=== PATIENT | female | born 1955 | race Two or more races ===

== ENCOUNTER 2017-02-24 09:57 | Emergency (ER) | payer OTHER ==
[~2017-02-24] VITALS: Ht 162.6 cm; Wt 61.2 kg
--- NOTE | 2017-02-24 10:08 | NUR ---
AAOX3, BB SON: ABDOMINAL PAIN/DISTENSION, BACK PAIN, DIFFICULTY WALKING. RR IS EVEN AND UNLABORED WITH NAD NOTED. SKIN IS WARM AND NON DIAPHORETIC. ASSISTED TO HOSPITAL GOWN, PLACED ON MONITOR. WILL CONTINUOUSLY MONITOR THE PATIENT. DR MOBLEY AT FOR EVAL.
[2017-02-24 10:55] LABS: BASOPHILS % (AUTO) 0.9 % (0.0-2.0); EOSINOPHILS # (AUTO) 0.1 /CMM (0.0-0.7); EOSINOPHILS % (AUTO) 2.5 % (0.0-6.0); HEMATOCRIT 33 % (33-45); LYMPHOCYTES # (AUTO) 1.1 /CMM (0.8-4.8); LYMPHOCYTES % (AUTO) 21.9 % (20.0-44.0); MEAN CORPUSCULAR HEMOGLOBIN 33 PG (26.0-33.0); MEAN CORPUSCULAR HGB CONC 34 g/dl (31.0-36.0); MEAN CORPUSCULAR VOLUME 97 fL (82-100); MONOCYTES # (AUTO) 0.6 /CMM (0.1-1.30); MONOCYTES % (AUTO) 12.3 % (2.0-12.0); NEUTROPHILS # (AUTO) 3.4 /CMM (1.8-8.9); NEUTROPHILS % (AUTO) 62.4 % (43.0-81.0); PLATELET COUNT (AUTO) 156 /CMM (150-450); RDW COEFFICIENT OF VARIATION 15.1 (11.5-15.0); RED BLOOD CELL COUNT(AUTO) 3.38 MIL/uL (4.0-5.2); WHITE BLOOD COUNT (AUTO) 5.2 K/uL (4.3-11.0)
[2017-02-24] MEDS ORDERED: TRAMADOL HCL 50 MG TABLET PO ONE (11:00)
[2017-02-24] MEDS ORDERED: TRAMADOL HCL 50 MG TABLET ONE (11:05)
[2017-02-24 11:09] LABS: INR 1.5 (0.87-1.13); PROTHROMBIN TIME 15.9 SECS (9.5-12.7)
[2017-02-24 11:14] LABS: ALBUMIN 2.1 g/dL (3.4-5.0); BILIRUBIN,DIRECT 1.4 mg/dL (0.0-0.2); CALCIUM, SERUM 8.4 mg/dL (8.5-10.1); CREATININE 1.2 mg/dL (0.6-1.3); POTASSIUM 4.3 mmol/L (3.5-5.1); TOTAL PROTEIN, SERUM 6.9 g/dL (6.4-8.2)
--- NOTE | 2017-02-24 11:23 | NUR ---
ADULT PAROLE OFFICER AT FOR PARACENTESIS
--- NOTE | 2017-02-24 12:31 | NUR ---
IV removed. Catheter intact and site benign. Pressure and 4x4 applied to site. No bleeding noted.
--- NOTE | 2017-02-24 12:32 | NUR ---
ASSUMED D/C CARE ONLY ON BEHALF OF PRIMARY NURSE STEFANIE. Patient discharged to home in stable condition. Written and verbal after care instructions given. Patient verbalizes understanding of instruction. Ambulatory with a steady gait accompanied by son.
[2017-02-24 12:34] VITALS: BP 115/72
== END 2017-02-24 12:35 | disposition home or self-care (01) ==
LOC: ER 10:01
DX: R18.8 Other ascites (principal); K74.60 Unspecified cirrhosis of liver; Z94.4 Liver transplant status; Z88.5 Allergy status to narcotic agent
CPT/HCPCS: 36415; 49083 ×2; 80048; 80076; 85025; 85730; 99285; A4606; Z7610; 76942-TC

== ENCOUNTER 2017-03-24 09:37 | Emergency (ER) | payer MEDICAID, OTHER ==
[~2017-03-24] VITALS: Ht 162.6 cm; Wt 62.6 kg
--- NOTE | 2017-03-24 09:40 | NUR ---
BIB SELF ABDOMINAL DISTENSION DUE TO ASCITIS, LAST PARACENTESIS 02/24/17, NAD NOTED, VSS , RESP EVEN AND UNLABORED. PT WAS PUT ON GOWN AND MONITOR, MD AT BEDSIDE FOR EVAL.
[2017-03-24] MEDS ORDERED: FURO40TA5 PO (09:56)
[2017-03-24] MEDS ORDERED: TRAM50TA2 PO (09:56)
[2017-03-24] MEDS ORDERED: SPIR25TA PO (09:56)
[2017-03-24] MEDS ORDERED: OMEP20CA10 PO (09:56)
[2017-03-24] MEDS ORDERED: ONDANSETRON HCL/PF 4 MG/2 ML VIAL ONE ×2 (09:59)
[2017-03-24] MEDS ORDERED: MORPHINE SULFATE INJ 2 MG/ML DISP.SYRIN ONE ×2 (10:00)
[2017-03-24] MEDS ORDERED: ONDANSETRON HCL/PF 4 MG/2 ML VIAL IVP ONE (10:00)
[2017-03-24] MEDS ORDERED: MORPHINE SULFATE INJ 2 MG/ML DISP.SYRIN IV ONE (10:00)
[2017-03-24 10:21] LABS: BASOPHILS # (AUTO) 0.1 /CMM (0.0-0.2); BASOPHILS % (AUTO) 1.4 % (0.0-2.0); EOSINOPHILS # (AUTO) 0.1 /CMM (0.0-0.7); EOSINOPHILS % (AUTO) 3.1 % (0.0-6.0); HEMATOCRIT 33 % (33-45); HEMOGLOBIN 11.3 g/dL (11.5-14.8); LYMPHOCYTES % (AUTO) 24.4 % (20.0-44.0); MEAN CORPUSCULAR HEMOGLOBIN 33 PG (26.0-33.0); MEAN CORPUSCULAR HGB CONC 34 g/dl (31.0-36.0); MEAN CORPUSCULAR VOLUME 97 fL (82-100); MONOCYTES # (AUTO) 0.6 /CMM (0.1-1.30); MONOCYTES % (AUTO) 12.9 % (2.0-12.0); NEUTROPHILS # (AUTO) 2.5 /CMM (1.8-8.9); NEUTROPHILS % (AUTO) 58.2 % (43.0-81.0); PLATELET COUNT (AUTO) 158 /CMM (150-450); RDW COEFFICIENT OF VARIATION 15.2 (11.5-15.0); RED BLOOD CELL COUNT(AUTO) 3.38 MIL/uL (4.0-5.2); WHITE BLOOD COUNT (AUTO) 4.3 K/uL (4.3-11.0)
[2017-03-24 10:30] LABS: CALCIUM, SERUM 8.1 mg/dL (8.5-10.1); CREATININE 1.3 mg/dL (0.6-1.3); POTASSIUM 3.2 mmol/L (3.5-5.1)
[2017-03-24 10:34] LABS: INR 1.47 (0.87-1.13); PROTHROMBIN TIME 15.6 SECS (9.5-12.7)
[2017-03-24 10:36] LABS: ALBUMIN 1.9 g/dL (3.4-5.0); BILIRUBIN,DIRECT 1.6 mg/dL (0.0-0.2); BILIRUBIN,TOTAL 2.9 mg/dL (0.2-1.0); TOTAL PROTEIN, SERUM 7.1 g/dL (6.4-8.2)
--- NOTE | 2017-03-24 11:30 | NUR ---
at bedside for US guided paracentesis. pt signed consents
--- NOTE | 2017-03-24 12:21 | NUR ---
IV removed. Catheter intact and site benign. Pressure and 4x4 applied to site. No bleeding noted.
--- NOTE | 2017-03-24 12:22 | NUR ---
Patient discharged to home in stable condition. Written and verbal after care instructions given. Patient verbalizes understanding of instruction.
[2017-03-24 12:56] VITALS: BP 124/78
== END 2017-03-24 12:56 | disposition home or self-care (01) ==
LOC: ER 09:40
DX: R18.8 Other ascites (principal); K74.60 Unspecified cirrhosis of liver; Z88.5 Allergy status to narcotic agent
CPT/HCPCS: 36415; 49083 ×2; 80048; 80076; 85025; 85730; 96374; 96375; 99285; A4606; A6402; J2270 ×2; J2405 ×2; Z7610; 76942-TC

== ENCOUNTER 2017-04-14 10:06 | Emergency (ER) | payer MEDICAID ==
[~2017-04-14] VITALS: Ht 162.6 cm; Wt 63.5 kg
[~2017-04-14 10:06] MED LIST: FURO40TA5 PO; OMEP20CA10 PO; SPIR25TA PO; TRAM50TA2 PO
--- NOTE | 2017-04-14 10:15 | NUR ---
BB SON: HERE FOR PARACENTESIS. LAST PARACENTESIS 3 WEEKS AGO. PATIENT A/OX 4. BREATHING EVEN AND UNLABORED. NO SOB. VITALS STABLE. SAFETY AND COMFORT MEASURES IN PLACE. AWAITING MD ORDERS.
[2017-04-14 10:55] LABS: BASOPHILS # (AUTO) 0.1 /CMM (0.0-0.2); BASOPHILS % (AUTO) 1.9 % (0.0-2.0); EOSINOPHILS # (AUTO) 0.1 /CMM (0.0-0.7); EOSINOPHILS % (AUTO) 3.4 % (0.0-6.0); HEMATOCRIT 31 % (33-45); HEMOGLOBIN 10.7 g/dL (11.5-14.8); LYMPHOCYTES # (AUTO) 1.1 /CMM (0.8-4.8); LYMPHOCYTES % (AUTO) 25.9 % (20.0-44.0); MEAN CORPUSCULAR HEMOGLOBIN 34 PG (26.0-33.0); MEAN CORPUSCULAR HGB CONC 35 g/dl (31.0-36.0); MEAN CORPUSCULAR VOLUME 98 fL (82-100); MONOCYTES # (AUTO) 0.7 /CMM (0.1-1.30); MONOCYTES % (AUTO) 14.9 % (2.0-12.0); NEUTROPHILS # (AUTO) 2.4 /CMM (1.8-8.9); NEUTROPHILS % (AUTO) 53.9 % (43.0-81.0); PLATELET COUNT (AUTO) 174 /CMM (150-450); RDW COEFFICIENT OF VARIATION 14.9 (11.5-15.0); RED BLOOD CELL COUNT(AUTO) 3.18 MIL/uL (4.0-5.2); WHITE BLOOD COUNT (AUTO) 4.4 K/uL (4.3-11.0)
[2017-04-14 11:10] LABS: INR 1.38 (0.87-1.13); PROTHROMBIN TIME 14.4 SECS (9.5-12.7)
[2017-04-14 11:13] LABS: ALBUMIN 1.8 g/dL (3.4-5.0); BILIRUBIN,DIRECT 1.6 mg/dL (0.0-0.2); CALCIUM, SERUM 8.5 mg/dL (8.5-10.1); CREATININE 1.3 mg/dL (0.6-1.3); POTASSIUM 4.3 mmol/L (3.5-5.1)
[2017-04-14] MEDS ORDERED: ONDANSETRON HCL/PF - ER 4 MG/2 ML VIAL IV ONE (11:30)
[2017-04-14] MEDS ORDERED: MORPHINE SULFATE INJ 2 MG/ML DISP.SYRIN IV ONE (11:30)
[2017-04-14] MEDS ORDERED: ONDANSETRON HCL/PF 4 MG/2 ML VIAL ONE (11:47)
[2017-04-14] MEDS ORDERED: MORPHINE SULFATE INJ 4 MG/ML DISP.SYRIN ONE (11:48)
--- NOTE | 2017-04-14 11:57 | NUR ---
NEW IV STARTED ON LAC, 22 G. PATIENT MEDICATED PER MD ORDERS.
--- NOTE | 2017-04-14 12:02 | NUR ---
US TECH AT BEDSIDE.
[2017-04-14] MEDS ORDERED: ALBUMIN 25% 100 ML IV ONE (13:00)
[2017-04-14] MEDS ORDERED: ALBUMIN 25% 12.5 GM/50 ML BOTTLE IV ONE (13:00)
--- NOTE | 2017-04-14 13:15 | NUR ---
PARACENTESIS COMPLETED, APPROX 8.9 L REMOVED. PATIENT'S VITALS REMAIN STABLE.
[2017-04-14 15:13] VITALS: BP 106/61
--- NOTE | 2017-04-14 15:24 | NUR ---
Patient discharged to home in stable condition. Written and verbal after care instructions given. Patient verbalizes understanding of instruction.
== END 2017-04-14 15:23 | disposition home or self-care (01) ==
LOC: ER 10:08
DX: R18.8 Other ascites (principal); K74.60 Unspecified cirrhosis of liver; Z88.5 Allergy status to narcotic agent
CPT/HCPCS: 36415; 49083; 76942-TC; 80048-TC; 80076-TC; 85025-TC; 85730-TC; A4606; J2270; J2405; P9047; Z7610

== ENCOUNTER 2017-04-28 15:38 | Inpatient (IN) | payer MEDICAID ==
[~2017-04-28] VITALS: Ht 162.6 cm; Wt 56.3 kg
--- NOTE | 2017-04-28 15:44 | NUR ---
NAUSEA, VOMITING, DIFFUSED ABDOMINAL PAIN X 1 MONTH
[2017-04-28] MEDS ORDERED: ONDANSETRON HCL/PF 4 MG/2 ML VIAL ONE (16:22)
[2017-04-28] MEDS ORDERED: HYDROMORPHONE 1 MG/1 ML DISP.SYRIN ONE (16:23)
[2017-04-28 16:27] LABS: CALCIUM, SERUM 8.7 mg/dL (8.5-10.1); CREATININE 1.2 mg/dL (0.6-1.3); POTASSIUM 3.7 mmol/L (3.5-5.1)
[2017-04-28 16:30] LABS: INR 1.38 (0.87-1.13); PROTHROMBIN TIME 14.4 SECS (9.5-12.7)
[2017-04-28] MEDS ORDERED: HYDROMORPHONE INJ 2 MG/ML DISP.SYRIN IV ONE (16:30)
[2017-04-28] MEDS ORDERED: ONDANSETRON HCL/PF 4 MG/2 ML VIAL IVP ONE (16:30)
[2017-04-28] MEDS ORDERED: IV NS 0.9% 1,000 ML BAG IV ONE (16:30)
[2017-04-28 16:32] LABS: ALBUMIN 2.1 g/dL (3.4-5.0); BILIRUBIN,DIRECT 1.7 mg/dL (0.0-0.2); BILIRUBIN,TOTAL 3.1 mg/dL (0.2-1.0); TOTAL PROTEIN, SERUM 6.9 g/dL (6.4-8.2)
[2017-04-28 16:37] LABS: BASOPHILS # (AUTO) 0.1 /CMM (0.0-0.2); BASOPHILS % (AUTO) 0.9 % (0.0-2.0); EOSINOPHILS % (AUTO) 0.5 % (0.0-6.0); HEMATOCRIT 32 % (33-45); HEMOGLOBIN 10.9 g/dL (11.5-14.8); LYMPHOCYTES # (AUTO) 1.1 /CMM (0.8-4.8); LYMPHOCYTES % (AUTO) 15.8 % (20.0-44.0); MEAN CORPUSCULAR HEMOGLOBIN 33 PG (26.0-33.0); MEAN CORPUSCULAR HGB CONC 34 g/dl (31.0-36.0); MEAN CORPUSCULAR VOLUME 99 fL (82-100); MONOCYTES # (AUTO) 0.8 /CMM (0.1-1.30); MONOCYTES % (AUTO) 10.9 % (2.0-12.0); NEUTROPHILS % (AUTO) 71.9 % (43.0-81.0); PLATELET COUNT (AUTO) 222 /CMM (150-450); RDW COEFFICIENT OF VARIATION 16.4 (11.5-15.0); RED BLOOD CELL COUNT(AUTO) 3.28 MIL/uL (4.0-5.2); WHITE BLOOD COUNT (AUTO) 6.9 K/uL (4.3-11.0)
--- NOTE | 2017-04-28 16:47 | NUR ---
FLAT LOCKER AT BEDSIDE
--- NOTE | 2017-04-28 17:55 | NUR ---
3L OUTPUT FROM PARACENTESIS. DR MOBLEY MADE AWARE
--- NOTE | 2017-04-28 18:22 | NUR ---
PT BACK FROM CT
--- NOTE | 2017-04-28 19:16 | NUR ---
GAVE REPORT TO WYATT FOR RAMBO
--- NOTE | 2017-04-28 20:32 | NUR ---
PATIENT ASSIGNED TO T323-1
--- NOTE | 2017-04-28 20:39 | NUR ---
REPORT GIVEN TO JOHN NICOLE FOR RAMBO.
--- NOTE | 2017-04-28 20:48 | NUR ---
patient unable to give urine at this time, per Dr Blanton patient is strict npo.
--- NOTE | 2017-04-28 20:51 | NUR ---
Transferred ptaient to tele floor via als protocol, no incident noted.
[2017-04-28] MEDS ORDERED: ONDANSETRON HCL/PF 4 MG/2 ML VIAL IVP PRN ×2 (21:00→21:15)
[2017-04-28] MEDS ORDERED: MAGNESIUM HYDROXIDE 30 ML UDC PO PRN ×2 (21:00→21:15)
[2017-04-28] MEDS ORDERED: ACETAMINOPHEN 325 MG TABLET PO PRN ×2 (21:00→21:15)
[2017-04-28] MEDS ORDERED: TRAMADOL HCL 50 MG TABLET PO PRN ×2 (21:00→21:15)
[2017-04-28] MEDS ORDERED: MAG HYDROX/AL HYDROX/SIMETH 30 ML UDC PO PRN ×2 (21:00→21:15)
[2017-04-28] MEDS ORDERED: Z GUARD REMEDY 2 OZ OINT TP PRN ×2 (21:00→21:15)
[2017-04-28 21:15] VITALS: BP 107/71
--- NOTE | 2017-04-28 21:15 | NUR ---
television cameraman note received patient awake, alert and oriented with son at bedside. No respiratory distress or sob noted. Patient denies any pain at this time. iv site to rac intact, with no redness noted. Skin intact, with no breakdown noted. Edema noted to bilateral legs and feet. Abdomen noted to be firm and distended. Medication reconciliation complete. All belongings checked and accounted for. Oriented patient and son to room and to unit. Side rails up, call light within reach. Waiting for MD orders.
[2017-04-29 04:00] VITALS: BP 129/84
--- NOTE | 2017-04-29 06:37 | NUR ---
ms rn note patient sleeping at this time. All needs met and attended to. Will endorse to day shift for roro.
[2017-04-29 08:00] VITALS: BP 113/78
--- NOTE | 2017-04-29 08:00 | NUR ---
OPENING RN NOTES: -PATIENT is alert, responding verbally, non-labored respirations, with IV site intact, claimed slight headache, & agreed with MD 's instructions to be NPO due to the procedure yesterday & to allow stomach to rest.
[2017-04-29] MEDS ORDERED: Medication Not On Formulary EA (Omeprazole 20 MG) PO SCH (09:00)
[2017-04-29] MEDS ORDERED: FUROSEMIDE 40 MG TABLET PO SCH (09:00)
[2017-04-29] MEDS ORDERED: SPIRONOLACTONE 25 MG TABLET PO SCH (09:00)
[2017-04-29] MEDS: PANTOPRAZOLE 40 MG TABLET.DR PO SCH (09:28)
[2017-04-29] MEDS: FUROSEMIDE 40 MG TABLET PO SCH (09:28)
[2017-04-29] MEDS: SPIRONOLACTONE 25 MG TABLET PO SCH (09:28)
[2017-04-29] MEDS: IV LR 1000 ML 1,000 ML IV PRN ×2 (09:34→23:11)
--- NOTE | 2017-04-29 09:38 | NUR ---
- clarified with Dr. Hay re; NPO except meds, & OKAYED WITH MEDS USING SIPS OF WATER, & gave IV fluids while patient is NPO. IV'S started via pump.
--- NOTE | 2017-04-29 12:41 | NUR ---
- patient ambulated around hallway with physical therapist, & also to BRP without problems.
[2017-04-29 16:00] VITALS: BP 102/70
--- NOTE | 2017-04-29 16:34 | NUR ---
- Informed Jeremiah, son re: need to obtain CT SCAN results done in [facility] - & he promised to get it on Monday.
[2017-04-29 16:45] VITALS: BP 104/61
--- NOTE | 2017-04-29 17:55 | NUR ---
RN Closing Notes: - patient is alert & oriented x4, fully awake, verbally responsive, ambulated to BRP with supervision, without problems, Jeremiah,son at bedside, remained NPO EXCEPT MEDS, patient patiently waiting for MD's visit today , claimed no abdominal pain this time, & headache is less bothersome, christ light within 'reach, with infusing IV via pump.
--- NOTE | 2017-04-29 19:30 | NUR ---
ms rn note Received patient awake and alert in bed. Patient denies any pain or discomfort. IV site intact, with fluids running as ordered. Bed locked and in lowest position. Side rails up, call light within reach. Will continue to monitor.
[2017-04-29 20:00] VITALS: BP_SYST 113; BP_DIAS 62; BP_DIAS 67
--- NOTE | 2017-04-30 06:10 | NUR ---
MS RN NOTE PATIENT STABLE. SLEEPING AT THIS TIME. ALL NEEDS MET AND ATTENDED TO. WILL ENDORSE TO DAY SHIFT FOR RAMBO.
[2017-04-30] MEDS: PANTOPRAZOLE 40 MG TABLET.DR PO SCH (06:30)
[2017-04-30 06:56] LABS: BASOPHILS % (AUTO) 0.3 % (0.0-2.0); EOSINOPHILS # (AUTO) 0.1 /CMM (0.0-0.7); EOSINOPHILS % (AUTO) 1.7 % (0.0-6.0); HEMATOCRIT 32 % (33-45); HEMOGLOBIN 10.7 g/dL (11.5-14.8); LYMPHOCYTES # (AUTO) 1.8 /CMM (0.8-4.8); LYMPHOCYTES % (AUTO) 24.9 % (20.0-44.0); MEAN CORPUSCULAR HEMOGLOBIN 34 PG (26.0-33.0); MEAN CORPUSCULAR HGB CONC 34 g/dl (31.0-36.0); MEAN CORPUSCULAR VOLUME 100 fL (82-100); MONOCYTES # (AUTO) 0.7 /CMM (0.1-1.30); MONOCYTES % (AUTO) 10.1 % (2.0-12.0); NEUTROPHILS # (AUTO) 4.6 /CMM (1.8-8.9); PLATELET COUNT (AUTO) 225 /CMM (150-450); RDW COEFFICIENT OF VARIATION 16.5 (11.5-15.0); RED BLOOD CELL COUNT(AUTO) 3.17 MIL/uL (4.0-5.2); WHITE BLOOD COUNT (AUTO) 7.4 K/uL (4.3-11.0)
[2017-04-30 07:20] LABS: CREATININE 1.3 mg/dL (0.6-1.3); MAGNESIUM 1.8 mg/dL (1.8-2.4); PHOSPHORUS 4.1 mg/dL (2.5-4.9); POTASSIUM 3.9 mmol/L (3.5-5.1)
[2017-04-30 07:29] LABS: THYROID STIMULATING HORMONE 1.471 uIU/mL (0.358-3.74)
[2017-04-30] MEDS ORDERED: DEXTROSE 50%-WATER 50 ML DISP.SYRIN ONE (07:37)
--- NOTE | 2017-04-30 07:55 | NUR ---
MS RN: INITIAL NOTE RECEIVED PT A/OX4. TURKMEN SPEAKING BUT UNDERSTANDS [place]. NO DISTRESS. NO SOB. NO PAIN NOTED. NPO EXCEPT MEDS. UPON ARRIVAL PT BG 49. PER MD ALMEIDA TO GIVE DEXTROSE. ADMINISTERED ORDERED. PT NOT EXPERIENCING S/S OF HYPOGLYCEMIA. PT NOT DIABETIC. LA @100ML/HR RUNNING ON RAC. SKIN INTACT. AMBULATES WITH ASSIST. WILL CONTINUE TO MONITOR. RESTING COMFORTABLY IN BED. CALL LIGHT WITHIN REACH.
[2017-04-30] MEDS: IV D5/0.45 NACL 1,000 ML IV PRN ×2 (08:30→23:59)
[2017-04-30] MEDS: SPIRONOLACTONE 25 MG TABLET PO SCH (08:31)
[2017-04-30] MEDS: FUROSEMIDE 40 MG TABLET PO SCH (08:31)
--- NOTE | 2017-04-30 19:03 | NUR ---
MS RN: CLOSING NOTE PT A//OX4. TOOK ALL MEDICATIONS ON TIME. NO ADVERSE REACTIONS NOTED. NO PAIN NOTED. NO SOB NOTED. NO DISTRESS NOTED. STARTED ON CLEAR LIQUID DIET PER MD ALMEIDA ORDERS. WILL SEE HOW PT TOLERATES DIET AND MOVE ON TOMORROW. PT MIGHT BE D/C TOMORROW BASED ON STATUS. ON D51/2 NS @ 100ML/HR. SITE CLEAR AND PATENT. NO REDNESS OR BLEEDING NOTED. RESTING COMFORTABLY IN BED. CALL LIGHT WITHIN REACH.
--- NOTE | 2017-04-30 19:30 | NUR ---
MS RN NOTE PATIENT RECEIVED AWAKE AND ALERT IN BED. NO PAIN OR DISCOMFORT NOTED. IV SITE INTACT WITH FLUIDS RUNNING ORDERED. BED LOCKED AND IN LOWEST POSITION. SIDE RAILS UP, CALL LIGHT WITHIN REACH. WILL CONTINUE TO MONITOR.
[2017-04-30 20:00] VITALS: BP 100/68
--- NOTE | 2017-05-01 06:15 | NUR ---
MS RN NOTE PATIENT STABLE. SLEEPING AT THIS TIME. ALL NEEDS MET AND ATTENDED TO. WILL ENDORSE TO DAY SHIFT FOR RAMBO.
[2017-05-01] MEDS: PANTOPRAZOLE 40 MG TABLET.DR PO SCH (06:37)
[2017-05-01 06:46] LABS: BASOPHILS % (AUTO) 0.6 % (0.0-2.0); EOSINOPHILS # (AUTO) 0.2 /CMM (0.0-0.7); EOSINOPHILS % (AUTO) 3.3 % (0.0-6.0); HEMATOCRIT 29 % (33-45); HEMOGLOBIN 9.9 g/dL (11.5-14.8); LYMPHOCYTES # (AUTO) 1.6 /CMM (0.8-4.8); LYMPHOCYTES % (AUTO) 29.4 % (20.0-44.0); MEAN CORPUSCULAR HEMOGLOBIN 34 PG (26.0-33.0); MEAN CORPUSCULAR HGB CONC 34 g/dl (31.0-36.0); MEAN CORPUSCULAR VOLUME 99 fL (82-100); MONOCYTES % (AUTO) 17.2 % (2.0-12.0); NEUTROPHILS # (AUTO) 2.8 /CMM (1.8-8.9); NEUTROPHILS % (AUTO) 49.5 % (43.0-81.0); PLATELET COUNT (AUTO) 202 /CMM (150-450); RDW COEFFICIENT OF VARIATION 16.2 (11.5-15.0); RED BLOOD CELL COUNT(AUTO) 2.93 MIL/uL (4.0-5.2); WHITE BLOOD COUNT (AUTO) 5.6 K/uL (4.3-11.0)
[2017-05-01 07:05] LABS: CALCIUM, SERUM 8.4 mg/dL (8.5-10.1); CREATININE 1.3 mg/dL (0.6-1.3); POTASSIUM 3.2 mmol/L (3.5-5.1)
--- NOTE | 2017-05-01 07:05 | NUR ---
MS RN initial notes Received pt in bed awake on room air, alert,orientedx4, hungarian speaking, no apparent distress noted.On IV D 5 1/2 NS @ 100ml/hr. IV site intact, patent. Will continue to monitor.
[2017-05-01 08:00] VITALS: BP 117/76
[2017-05-01] MEDS: SPIRONOLACTONE 25 MG TABLET PO SCH (08:00)
[2017-05-01] MEDS: FUROSEMIDE 40 MG TABLET PO SCH (08:00)
[2017-05-01 08:51] LABS: EOSINOPHILS % (MANUAL) 3 % (0-4); LYMPHOCYTES % (MANUAL) 10 % (16-48); MONOCYTES % (MANUAL) 9 % (0-11.0); NEUTROPHILS % (MANUAL) 78 (42-76)
[2017-05-01] MEDS ORDERED: POTASSIUM CHLORIDE 20 MEQ TAB.PRT.SR PO ONE (09:00)
[2017-05-01 16:00] VITALS: BP 127/73
--- NOTE | 2017-05-01 19:24 | NUR ---
ms learning administrator notes discharge instructions given to patient and able to understand instructions. Signed belonging list and discharge paper. discontinued IV and pressured applied to prevent bleeding. Flu vaccine not give due to patient refusal will receive elsewhere. Explained the risk and benefits x 3, and still refused. Pneumonia vaccine not given due to <65 years old. Patient left the hospital in stable condition accompanied by PROFESSOR OF PHYSICAL EDUCATION no complaint of pain or discomfort noted. nor chest pain Vital signs checked and recorded. MD and charge nurse aware.
== END 2017-05-01 19:25 | disposition home or self-care (01) | DRG 264 ==
LOC: ER 15:40 → TELE 21:10 → MED 04-29 05:11
PROVIDERS: ADMIT Family Medicine; ATTEND Family Medicine
PROC: 0W9G3ZX Drainage of Peritoneal Cavity, Percutaneous Approach, Diagnostic (ICD-10-PCS; principal; 2017-04-28)
DX: K85.90 Acute pancreatitis without necrosis or infection, unspecified (principal); E43 Unspecified severe protein-calorie malnutrition; R18.8 Other ascites; K74.60 Unspecified cirrhosis of liver; E87.1 Hypo-osmolality and hyponatremia; K86.89 Other specified diseases of pancreas; D63.8 Anemia in other chronic diseases classified elsewhere; Z88.5 Allergy status to narcotic agent; Z87.891 Personal history of nicotine dependence; Z90.49 Acquired absence of other specified parts of digestive tract; Z79.899 Other long term (current) drug therapy; M46.90 Unspecified inflammatory spondylopathy, site unspecified
CPT/HCPCS: 36415; 76942-TC; 80048-TC; 80076-TC; 82140-TC; 82728-TC; 82746; 83540-TC; 83690-TC; 83735-TC; 84100-TC; 84439-TC; 84443-TC; 85025-TC; 85730-TC; 86301; 87081-TC; J1170; J2405; J3490; J7030; J7120

== ENCOUNTER 2017-05-11 10:14 | Emergency (ER) | payer MEDICAID ==
[~2017-05-11] VITALS: Ht 162.6 cm; Wt 62.6 kg
--- NOTE | 2017-05-11 10:20 | NUR ---
PRESENTS TO ER C/O ABD PAIN AND BACK PAIN . ADB DISTENTION -N/V RECENT PARACENTESIS 2 WEEKS AGO. PATIENT A/OX 4. BREATHING EVEN AND UNLABORED. NO SOB. VITALS STABLE. SAFETY AND COMFORT MEASURSE IN PLACE. AWAITING MD ORDERS.
[2017-05-11] MEDS ORDERED: ONDANSETRON HCL/PF 4 MG/2 ML VIAL ONE (10:51)
[2017-05-11] MEDS ORDERED: HYDROMORPHONE 1 MG/1 ML DISP.SYRIN ONE (10:52)
--- NOTE | 2017-05-11 10:55 | NUR ---
NEW IV STARTED ON RAC, 20 G. BLOOD DRAWN AND SENT TO LAB.
[2017-05-11] MEDS ORDERED: HYDROMORPHONE INJ 2 MG/ML DISP.SYRIN IV ONE (11:00)
[2017-05-11] MEDS ORDERED: ONDANSETRON HCL/PF 4 MG/2 ML VIAL IVP ONE (11:00)
--- NOTE | 2017-05-11 11:00 | NUR ---
PATIENT MEDICATED PER MD ORDERS.
[2017-05-11 11:01] LABS: BASOPHILS # (AUTO) 0.1 /CMM (0.0-0.2); BASOPHILS % (AUTO) 1.6 % (0.0-2.0); EOSINOPHILS # (AUTO) 0.2 /CMM (0.0-0.7); EOSINOPHILS % (AUTO) 3.6 % (0.0-6.0); HEMATOCRIT 31 % (33-45); HEMOGLOBIN 10.7 g/dL (11.5-14.8); LYMPHOCYTES # (AUTO) 1.2 /CMM (0.8-4.8); LYMPHOCYTES % (AUTO) 25.1 % (20.0-44.0); MEAN CORPUSCULAR HEMOGLOBIN 34 PG (26.0-33.0); MEAN CORPUSCULAR HGB CONC 34 g/dl (31.0-36.0); MEAN CORPUSCULAR VOLUME 100 fL (82-100); MONOCYTES # (AUTO) 0.9 /CMM (0.1-1.30); MONOCYTES % (AUTO) 19.3 % (2.0-12.0); NEUTROPHILS # (AUTO) 2.3 /CMM (1.8-8.9); NEUTROPHILS % (AUTO) 50.4 % (43.0-81.0); PLATELET COUNT (AUTO) 169 /CMM (150-450); RDW COEFFICIENT OF VARIATION 15.4 (11.5-15.0); RED BLOOD CELL COUNT(AUTO) 3.16 MIL/uL (4.0-5.2); WHITE BLOOD COUNT (AUTO) 4.7 K/uL (4.3-11.0)
[2017-05-11 11:13] LABS: CALCIUM, SERUM 8.7 mg/dL (8.5-10.1); CREATININE 1.3 mg/dL (0.6-1.3); POTASSIUM 3.6 mmol/L (3.5-5.1)
[2017-05-11 11:16] LABS: INR 1.38 (0.87-1.13); PROTHROMBIN TIME 14.4 SECS (9.5-12.7)
[2017-05-11 11:18] LABS: ALBUMIN 1.9 g/dL (3.4-5.0); BILIRUBIN,DIRECT 1.8 mg/dL (0.0-0.2); BILIRUBIN,TOTAL 3.4 mg/dL (0.2-1.0)
[2017-05-11 11:36] LABS: APPEARANCE,URINE Slightly Cloudy (CLEAR); BILIRUBIN,URINE Negative (NEGATIVE); BLOOD, URINE Moderate Ery/uL (NEGATIVE); KETONES,URINE Negative (NEGATIVE); LEUKOCYTE ESTERASE ,URINE Small (NEGATIVE); NITRITE, URINE Negative (NEGATIVE); PROTEIN,URINE Negative (NEGATIVE); UGLUCOSE Negative (NEGATIVE)
[2017-05-11 11:38] LABS: COLOR,URINE DARK YELLOW (YELLOW)
[2017-05-11 11:44] LABS: BACTERIA,URINE Few /HPF (None Seen); SQUAMOUS EPITHELIAL CELL,UR Few /HPF (None Seen)
--- NOTE | 2017-05-11 11:50 | NUR ---
US TECH AT BEDSIDE FOR PARACENTESIS.
[2017-05-11 12:46] LABS: BAND % (MANUAL) 1 % (0.0-5.0); EOSINOPHILS % (MANUAL) 2 % (0-4); LYMPHOCYTES % (MANUAL) 27 % (16-48); MONOCYTES % (MANUAL) 12 % (0-11.0); NEUTROPHILS % (MANUAL) 58 (42-76)
--- NOTE | 2017-05-11 13:15 | NUR ---
IV removed. Catheter intact and site benign. Pressure and 4x4 applied to site. No bleeding noted. Patient discharged to home in stable condition. Written and verbal after care instructions given. Patient verbalizes understanding of instruction.
[2017-05-11 13:16] VITALS: BP 114/72
== END 2017-05-11 13:17 | disposition home or self-care (01) ==
LOC: ER 10:16
DX: R18.8 Other ascites (principal); K74.60 Unspecified cirrhosis of liver; K86.2 Cyst of pancreas; K85.90 Acute pancreatitis without necrosis or infection, unspecified; Z90.49 Acquired absence of other specified parts of digestive tract; Z88.5 Allergy status to narcotic agent
CPT/HCPCS: 36415; 76942-TC; 80048-TC; 80076-TC; 81000-TC; 83690-TC; 85025-TC; 85730-TC; A4606; J1170; J2405; Z7610

== ENCOUNTER 2017-05-20 14:12 | Emergency (ER) | payer MEDICAID ==
[~2017-05-20] VITALS: Ht 162.6 cm; Wt 61.2 kg
--- NOTE | 2017-05-20 14:20 | NUR ---
PT BIB SON WITH C/O BACK PAIN . DISTENDED ABDOMEN. RECENT PARACENTESIS X7 DAYS. VSS. AWAITING FOR MD EVANS. SAFETY AND COMFORT MEASURES PROVIDED. WILL MONITOR.
--- NOTE | 2017-05-20 15:50 | NUR ---
AT TO DISCUSS POC.
[2017-05-20] MEDS ORDERED: HYDROCODONE/APAP 10/325MG 1 EA TABLET PO ONE (16:00)
[2017-05-20] MEDS ORDERED: HYDROCODONE/APAP 10/325MG 1 EA TABLET ONE (16:07)
--- NOTE | 2017-05-20 16:15 | NUR ---
Patient discharged to home in stable condition. Written and verbal after care instructions given. Patient verbalizes understanding of instruction.
[2017-05-20 16:31] VITALS: BP 117/80
== END 2017-05-20 16:31 | disposition home or self-care (01) ==
LOC: ER 14:15
DX: K74.60 Unspecified cirrhosis of liver (principal); R18.8 Other ascites; Z90.49 Acquired absence of other specified parts of digestive tract; Z88.5 Allergy status to narcotic agent
CPT/HCPCS: 99282; A4606; Z7610

== ENCOUNTER 2017-06-09 09:28 | Inpatient (IN) | payer MEDICAID ==
[~2017-06-09] VITALS: Ht 157.5 cm; Wt 56.4 kg
--- NOTE | 2017-06-09 09:40 | NUR ---
AAOX3, CAME TO ER FOR PARACENTESIS. PER SON'S REPORT, PATIENT LAST PARACENTESIS WAS A WEEK AGO AT [facility]. SKIN IS WARM AND DRY. RESP IS SLIGHTLY LABORED. AWAITING MD FOR EVAL.
--- NOTE | 2017-06-09 09:48 | NUR ---
DR MOBLEY AT FOR EVAL.
[2017-06-09 10:22] LABS: BASOPHILS # (AUTO) 0.1 /CMM (0.0-0.2); BASOPHILS % (AUTO) 0.7 % (0.0-2.0); EOSINOPHILS # (AUTO) 0.3 /CMM (0.0-0.7); EOSINOPHILS % (AUTO) 3.8 % (0.0-6.0); HEMATOCRIT 27 % (33-45); HEMOGLOBIN 8.7 g/dL (11.5-14.8); LYMPHOCYTES # (AUTO) 1.2 /CMM (0.8-4.8); MEAN CORPUSCULAR HEMOGLOBIN 34 PG (26.0-33.0); MEAN CORPUSCULAR HGB CONC 33 g/dl (31.0-36.0); MEAN CORPUSCULAR VOLUME 103 fL (82-100); MONOCYTES # (AUTO) 1.4 /CMM (0.1-1.30); MONOCYTES % (AUTO) 18.2 % (2.0-12.0); NEUTROPHILS # (AUTO) 4.8 /CMM (1.8-8.9); NEUTROPHILS % (AUTO) 62.3 % (43.0-81.0); PLATELET COUNT (AUTO) 143 /CMM (150-450); RDW COEFFICIENT OF VARIATION 17.7 (11.5-15.0); RED BLOOD CELL COUNT(AUTO) 2.58 MIL/uL (4.0-5.2); WHITE BLOOD COUNT (AUTO) 7.8 K/uL (4.3-11.0)
[2017-06-09 10:30] LABS: CALCIUM, SERUM 8.9 mg/dL (8.5-10.1); POTASSIUM 4.7 mmol/L (3.5-5.1)
[2017-06-09 10:33] LABS: INR 1.5 (0.87-1.13); PROTHROMBIN TIME 15.6 SECS (9.5-12.7)
[2017-06-09 10:35] LABS: ALBUMIN 2.5 g/dL (3.4-5.0); BILIRUBIN,DIRECT 1.9 mg/dL (0.0-0.2); BILIRUBIN,TOTAL 3.9 mg/dL (0.2-1.0); TOTAL PROTEIN, SERUM 6.6 g/dL (6.4-8.2)
[2017-06-09 10:38] LABS: EOSINOPHILS % (MANUAL) 4 % (0-4); LYMPHOCYTES % (MANUAL) 19 % (16-48); MONOCYTES % (MANUAL) 13 % (0-11.0); NEUTROPHILS % (MANUAL) 64 (42-76)
[2017-06-09] MEDS ORDERED: ONDANSETRON HCL/PF 4 MG/2 ML VIAL ONE (11:28)
[2017-06-09] MEDS ORDERED: MORPHINE SULFATE INJ 2 MG/ML DISP.SYRIN ONE (11:29)
[2017-06-09] MEDS ORDERED: MORPHINE SULFATE INJ 2 MG/ML DISP.SYRIN IV ONE (11:30)
[2017-06-09] MEDS ORDERED: ONDANSETRON HCL/PF 4 MG/2 ML VIAL IV ONE (11:30)
[2017-06-09 11:49] LABS: APPEARANCE,URINE Clear (CLEAR); BILIRUBIN,URINE SMALL (NEGATIVE); BLOOD, URINE Negative Ery/uL (NEGATIVE); COLOR,URINE Yellow (YELLOW); KETONES,URINE Negative (NEGATIVE); LEUKOCYTE ESTERASE ,URINE Negative (NEGATIVE); NITRITE, URINE Negative (NEGATIVE); PROTEIN,URINE Negative (NEGATIVE); UGLUCOSE Negative (NEGATIVE); UROBILINOGEN,URINE 0.2 EU/dL (0.2)
--- NOTE | 2017-06-09 12:33 | NUR ---
CALLED [employer] BRAKE DRUM MOLDER WAS PAGED.
[2017-06-09] MEDS ORDERED: RIFA550T PO (12:37)
[2017-06-09] MEDS ORDERED: GABA-532 PO (12:37)
[2017-06-09] MEDS ORDERED: POTA-88 PO (12:37)
[2017-06-09] MEDS ORDERED: LACT10SO PO (12:37)
[2017-06-09] MEDS ORDERED: THIA100T13 PO (12:37)
[2017-06-09] MEDS ORDERED: CIPR-263 PO (12:37)
--- NOTE | 2017-06-09 12:41 | NUR ---
MS 203
[2017-06-09] MEDS ORDERED: TRAMADOL HCL 50 MG TABLET PO PRN (13:00)
--- NOTE | 2017-06-09 13:21 | NUR ---
REPORT GIVEN TO COREY DUBON FOR RAMBO MS 203
[2017-06-09] MEDS ORDERED: ONDANSETRON HCL/PF 4 MG/2 ML VIAL IVP PRN (13:30)
[2017-06-09] MEDS ORDERED: MAG HYDROX/AL HYDROX/SIMETH 30 ML UDC PO PRN (13:30)
[2017-06-09] MEDS ORDERED: MAGNESIUM HYDROXIDE 30 ML UDC PO PRN (13:30)
[2017-06-09] MEDS ORDERED: ZOLPIDEM TARTRATE 5 MG TABLET PO PRN (13:30)
[2017-06-09] MEDS ORDERED: ACETAMINOPHEN 325 MG TABLET PO PRN (13:30)
--- NOTE | 2017-06-09 13:45 | NUR ---
ADMISSION NOTES PATIENT ADMITTED FROM ER 61 Y/OLD FEMALE ON Dx. OF MASSIVE ASCITES, ACUTE RENAL FAILURE. PATIENT A/O X3, WOLOF SPEAKER, COOPERATIVE, ENCOURAGED TO EXPRESS FEELINGS AND CONCERNS. SON WITH THE PATIENT. LUNGS SOUND ARE CLEAR DURING AUSCULTATION, UNLABORED. PATIENT HAS NO C/O RESPIRATORY DISTRESS, NO COMPLAINING OF PAIN AT THIS TIME, IV HEP LOCK LEFT FOREARM, V/S TAKEN T-97.8, P-84, R-19, O2-100 ROOM AIR, BP-104/67. SKIN ASSESSMENT DONE PATIENT HAS A DISTENDED ABDOMEN, DRESSING ON LEFT LOWER QUADRANT AFTER PARACENTESIS. EDEMA BILATERAL LOWER EXTREMITIES, PICTURE TAKEN. BELONGING CHECKED, DR ROBISON AWARE OF NEW PATIENT, AND MEDICATION. CONTINUED MONITORING.
[2017-06-09 13:48] VITALS: BP 104/67
--- NOTE | 2017-06-09 17:00 | NUR ---
RN NOTES PATIENT IN THE BED , HOB ELEVATED, PATIENT ON O2-2L NC, NO RESPIRATORY DISTRESS AT THIS TIME, REFUSED PAIN. SCHEDULED MEDICATION ADMINISTERED, V/S TAKEN STABLE, PATIENT TURN AND REPOSITION Q2 HR. NEEDS ATTENDED AND ANTICIPATED, SON NEXT TO THE BED. CALL LIGHT WITHIN TO REACH. CONTINUED MONITORING.
[2017-06-09] MEDS: RIFAXIMIN 550 MG TABLET PO SCH (17:09)
[2017-06-09] MEDS: CIPROFLOXACIN HCL 250 MG TABLET PO SCH (17:09)
--- NOTE | 2017-06-09 19:45 | NUR ---
MS RN NOTE: PATIENT RESTING IN BED, NO ACUTE DISTRESS NOTED, SON AT BEDSIDE. BREATHING EVEN AND UNLABORED, NO SOB NOTED. IV TO RFA IN PLACE. BED LOCKED AND IN LOWEST POSITION, CALL LIGHT IN REACH. WILL CONTINUE TO MONITOR.
[2017-06-09] MEDS ORDERED: HYDR28.32 TP (19:54)
[2017-06-09 20:00] VITALS: BP 115/66
[2017-06-09] MEDS: GABAPENTIN 100 MG CAPSULE PO SCH (21:06)
[2017-06-09] MEDS: HYDROCODONE/APAP 5/325MG 1 EACH TABLET PO PRN (21:07)
--- NOTE | 2017-06-09 21:15 | NUR ---
MS RN NOTE: PATIENT COMPLAINS OF ABDOMINAL PAIN 01/09, NORCO 5/325MG ORAL GIVEN PER MD ORDER. WILL CONTINUE TO MONITOR.
--- NOTE | 2017-06-10 00:20 | NUR ---
MS RN NOTE: REPORT GIVEN TO COREY BYRNE FOR TRANSFER OF CARE. WILL CONTINUE TO WITH PLAN OF CARE.
[2017-06-10 06:34] LABS: BASOPHILS % (AUTO) 0.6 % (0.0-2.0); EOSINOPHILS # (AUTO) 0.5 /CMM (0.0-0.7); EOSINOPHILS % (AUTO) 6.4 % (0.0-6.0); HEMATOCRIT 25 % (33-45); HEMOGLOBIN 8.4 g/dL (11.5-14.8); LYMPHOCYTES # (AUTO) 1.3 /CMM (0.8-4.8); LYMPHOCYTES % (AUTO) 17.6 % (20.0-44.0); MEAN CORPUSCULAR HEMOGLOBIN 35 PG (26.0-33.0); MEAN CORPUSCULAR HGB CONC 34 g/dl (31.0-36.0); MEAN CORPUSCULAR VOLUME 103 fL (82-100); MONOCYTES # (AUTO) 1.3 /CMM (0.1-1.30); MONOCYTES % (AUTO) 16.8 % (2.0-12.0); NEUTROPHILS # (AUTO) 4.4 /CMM (1.8-8.9); NEUTROPHILS % (AUTO) 58.6 % (43.0-81.0); PLATELET COUNT (AUTO) 140 /CMM (150-450); RDW COEFFICIENT OF VARIATION 17.1 (11.5-15.0); RED BLOOD CELL COUNT(AUTO) 2.41 MIL/uL (4.0-5.2); WHITE BLOOD COUNT (AUTO) 7.5 K/uL (4.3-11.0)
--- NOTE | 2017-06-10 07:02 | NUR ---
PATIENT RESTING IN BED, NO ACUTE DISTRESS NOTED, BREATHING EVEN AND UNLABORED, NO SOB NOTED. IV TO RFA IN PLACE. BED LOCKED AND IN LOWEST POSITION, CALL LIGHT IN REACH. WILL CONTINUE TO MONITOR.
[2017-06-10 07:09] LABS: BILIRUBIN,TOTAL 3.5 mg/dL (0.2-1.0); CALCIUM, SERUM 8.7 mg/dL (8.5-10.1); CREATININE 2.3 mg/dL (0.6-1.3); MAGNESIUM 1.7 mg/dL (1.8-2.4); PHOSPHORUS 3.8 mg/dL (2.5-4.9); POTASSIUM 5.1 mmol/L (3.5-5.1); TOTAL PROTEIN, SERUM 5.7 g/dL (6.4-8.2)
[2017-06-10 07:13] LABS: THYROID STIMULATING HORMONE 3.231 uIU/mL (0.358-3.74)
--- NOTE | 2017-06-10 07:31 | NUR ---
MS/RN OPENING NOTE PATIENT RECEIVED IN BED IN STABLE CONDITION. A/O X 3. NOS SIGNS OF ACUTE DISTRESS. NO C/O PAIN OR DISCOMFORT. ALL NEEDS ATTENDED TO. CALL LIGHT WITHIN REACH. WILL CONTINUE TO MONITOR TO ENSURE SAFETY.
[2017-06-10 08:00] VITALS: BP 107/60
[2017-06-10] MEDS: CIPROFLOXACIN HCL 250 MG TABLET PO SCH ×2 (08:42→16:21)
[2017-06-10] MEDS: RIFAXIMIN 550 MG TABLET PO SCH ×2 (08:42→16:21)
[2017-06-10] MEDS: LACTULOSE 10 G/15 ML UDC (PYXIS) PO PRN (08:42)
[2017-06-10] MEDS: HYDROCODONE/APAP 5/325MG 1 EACH TABLET PO PRN ×2 (08:42→20:34)
[2017-06-10] MEDS: THIAMINE HCL 100 MG TABLET PO SCH (08:42)
[2017-06-10 09:38] LABS: EOSINOPHILS % (MANUAL) 10 % (0-4); LYMPHOCYTES % (MANUAL) 9 % (16-48); MONOCYTES % (MANUAL) 17 % (0-11.0); NEUTROPHILS % (MANUAL) 64 (42-76)
--- NOTE | 2017-06-10 10:00 | NUR ---
MS/RN SEEN BY DR KOENIG PATIENT SEEN BY DR KOENIG WITH NO ORDERS AT THIS TIME.
[2017-06-10] MEDS ORDERED: Magnesium 1GM/D5W 100ML PREMIX 100 ML IV SCH (10:54)
[2017-06-10 16:00] VITALS: BP 94/61
[2017-06-10] MEDS: HYDROCORTISONE 2.5% CREAM 28.4 GM TUBE TP SCH ×2 (18:06→21:00)
--- NOTE | 2017-06-10 18:13 | NUR ---
MS/RN CLOSING NOTE PATIENT IN BED IN STABLE CONDITION. A/O X 3. NO SIGNS OF ACUTE DISTRESS. NO COMPLAIN OF PAIN OR DISCOMFORT. ALL NEEDS ATTENDED TO. CALL LIGHT WITHIN REACH. WILL ENDORSE TO NEXT SHIFT FOR CONTINUITY OF CARE.
--- NOTE | 2017-06-10 19:48 | NUR ---
MS/RN OPENING NOTES PATIENT IN BED, ALERT, ORIENTED X3. ABLE TO VERBALIZE NEEDS. PROVIDE WARM BLANKET PATIENT REPORTED FEELING COLD. RESPIRATIONS EVEN AND UNLABORED. INFORMED ABOUT MEDICATION REGIMEN. CALL LIGHTS WITHIN REACH, BED IN LOCK POSITION. WILL CONTINUE TO MONITOR AND CONTINUE PLAN OF CARE. RECEIVED ENDORSEMENT FORM AM RN.
[2017-06-10 20:00] VITALS: BP 108/63
--- NOTE | 2017-06-10 20:00 | NUR ---
MS/RN NOTES PER PATIENT ALREADY ADMINISTERED THE MEDICATION FOR HEMORRHOIDS ALREADY.
[2017-06-10] MEDS: Z GUARD REMEDY 2 OZ OINT TP PRN (20:33)
--- NOTE | 2017-06-10 20:36 | NUR ---
ms/rn notes patient reported pain in left abd side, grimace and guarding. administer med by mouth, will continue to monitor. prefer norco 5-325 mg po at this time. will continue to monitor pain effectiveness
[2017-06-10] MEDS: GABAPENTIN 100 MG CAPSULE PO SCH (21:42)
[2017-06-10 22:16] VITALS: BP 108/63
[2017-06-11] MEDS: HYDROCODONE/APAP 5/325MG 1 EACH TABLET PO PRN (01:37)
--- NOTE | 2017-06-11 01:37 | NUR ---
ms/rn notes patient awaken from sleep and reported pain in abdomen left side and also need help to bathroom. will administer norco 5-325 mg po and monitor effectiveness.
--- NOTE | 2017-06-11 06:31 | NUR ---
PATIENT CAROLINE, ORIENTED X3. ABLE TO VERBALIZE NEEDS. ASSIST TO BATHROOM FOR SAFETY. WEAK AND PROVIDED WARMT. PAIN MEDICATION PROVIDED TO RELIEVE PAIN IN LEFT ABDOMINAL SITE. ABLE TO SLEEP DURING THE NIGHT. BED IN LOCK POSITIN. CALL LIGHTS WITHIN REACH.
[2017-06-11 07:03] LABS: BASOPHILS # (AUTO) 0.1 /CMM (0.0-0.2); BASOPHILS % (AUTO) 0.9 % (0.0-2.0); EOSINOPHILS # (AUTO) 0.4 /CMM (0.0-0.7); HEMATOCRIT 25 % (33-45); HEMOGLOBIN 8.4 g/dL (11.5-14.8); LYMPHOCYTES # (AUTO) 1.2 /CMM (0.8-4.8); LYMPHOCYTES % (AUTO) 15.6 % (20.0-44.0); MEAN CORPUSCULAR HEMOGLOBIN 35 PG (26.0-33.0); MEAN CORPUSCULAR HGB CONC 34 g/dl (31.0-36.0); MEAN CORPUSCULAR VOLUME 103 fL (82-100); MONOCYTES # (AUTO) 1.2 /CMM (0.1-1.30); MONOCYTES % (AUTO) 15.2 % (2.0-12.0); NEUTROPHILS # (AUTO) 4.9 /CMM (1.8-8.9); NEUTROPHILS % (AUTO) 63.3 % (43.0-81.0); PLATELET COUNT (AUTO) 134 /CMM (150-450); RDW COEFFICIENT OF VARIATION 17.1 (11.5-15.0); RED BLOOD CELL COUNT(AUTO) 2.42 MIL/uL (4.0-5.2); WHITE BLOOD COUNT (AUTO) 7.7 K/uL (4.3-11.0)
[2017-06-11 07:26] LABS: BILIRUBIN,TOTAL 2.5 mg/dL (0.2-1.0); CALCIUM, SERUM 8.5 mg/dL (8.5-10.1); CREATININE 2.6 mg/dL (0.6-1.3); POTASSIUM 4.7 mmol/L (3.5-5.1); TOTAL PROTEIN, SERUM 5.8 g/dL (6.4-8.2)
[2017-06-11 07:43] LABS: EOSINOPHILS % (MANUAL) 5 % (0-4); LYMPHOCYTES % (MANUAL) 18 % (16-48); MONOCYTES % (MANUAL) 15 % (0-11.0); NEUTROPHILS % (MANUAL) 62 (42-76)
--- NOTE | 2017-06-11 07:47 | NUR ---
MS RN OPENING NOTE RECEIVED BEDSIDE SBAR REPORT. PATIENT IS A/O X4, AWAKE AND RESPONSIVE. PRESENTS WITH UNLABORED BREATHING. CHEST RISING EQUALLY BILATERALLY. NO S/S OF DISTRESS. DENIES PAIN/DISCOMFORT AT THIS TIME. PATIENT IS IN BED, BED IS LOCKED IN LOWEST POSITION, SIDE RAILS UP X2. CALL LIGHT WITHIN REACH. PATIENT IS EDUCATED TO USE THE CALL LIGHT TO CALL FOR ASSISTANCE VIA TEACH BACK METHOD AND VERBALIZED UNDERSTANDING. ALL NEEDS ARE MET AT THIS TIME. WILL CONTINUE TO ASSESS/MONITOR THROUGHOUT THE SHIFT.
[2017-06-11 08:00] VITALS: BP 114/64
[2017-06-11] MEDS: HYDROCORTISONE 2.5% CREAM 28.4 GM TUBE TP SCH ×2 (09:00→13:00)
[2017-06-11] MEDS: RIFAXIMIN 550 MG TABLET PO SCH (09:01)
[2017-06-11] MEDS: CIPROFLOXACIN HCL 250 MG TABLET PO SCH (09:01)
[2017-06-11] MEDS: THIAMINE HCL 100 MG TABLET PO SCH (09:01)
[2017-06-11] MEDS: Z GUARD REMEDY 2 OZ OINT TP PRN (09:03)
[2017-06-11] MEDS: LACTULOSE 10 G/15 ML UDC (PYXIS) PO PRN (11:03)
--- NOTE | 2017-06-11 13:59 | NUR ---
MS RN NOTE PATIENT REFUSED HYDROCORTISONE APPLICATION AT THIS TIME. STATED SHE WILL DO IT AT HOME UPON DISCHARGE.
[2017-06-11 16:00] VITALS: BP 105/68
--- NOTE | 2017-06-11 17:03 | NUR ---
MS LEAD DATA ARCHITECT NOTE DISCHARGE INSTRUCTIONS/EDUCATION PROVIDED TO THE PATIENT AND THE CAREGIVER (SON TEE) VIA TEACH BACK METHOD. PATIENT/CAREGIVER VERBALIZED FULL UNDERSTANDING OF THE TEACHINGS. ALL QUESTIONS ANSWERED. ALL BELONGINGS ARE ACCOUNTED FOR. IV CATHETER REMOVED WITH THE TIP INTACT. OCCLUSIVE DRESSING APPLIED. SKIN ASSESSMENT PERFORMED. PICTURES ARE TAKEN AND PLACED IN THE CHART. VS WNL. PATIENT DENIES PAIN/DISCOMFORT AT THIS TIME. PATIENT LEFT THE UNIT VIA WHEELCHAIR ACCOMPANIED BY THE EILEEN KAM AND THE SON TEE IN A STABLE CONDITION.
== END 2017-06-11 17:07 | disposition home or self-care (01) ==
LOC: ER 09:29 → MEDSG2 12:37
PROC: 0W9G3ZZ Drainage of Peritoneal Cavity, Percutaneous Approach (ICD-10-PCS; principal; 2017-06-09)
DX: K74.60 Unspecified cirrhosis of liver (principal); N17.0 Acute kidney failure with tubular necrosis; D68.9 Coagulation defect, unspecified; R18.8 Other ascites; D69.6 Thrombocytopenia, unspecified; Z88.5 Allergy status to narcotic agent; Z90.49 Acquired absence of other specified parts of digestive tract; Z79.899 Other long term (current) drug therapy; D64.9 Anemia, unspecified; T50.2X5A Adverse effect of carbonic-anhydrase inhibitors, benzothiadiazides and other diuretics, initial encounter; Y92.009 Unspecified place in unspecified non-institutional (private) residence as the place of occurrence of the external cause; K64.9 Unspecified hemorrhoids; R19.7 Diarrhea, unspecified
CPT/HCPCS: 36415; 76942-TC; 80048-TC; 80053-TC; 80061-TC; 80076-TC; 81000-TC; 82140-TC; 82272-TC; 83690-TC; 83735-TC; 84100-TC; 84443-TC; 85025-TC; 85730-TC; 87081-TC; A4606; J2270; J2405; J3475; J7050; Z7610

== ENCOUNTER 2021-08-19 10:24 | Emergency (ER) | payer MEDICAID ==
[~2021-08-19] VITALS: Ht 157.5 cm; Wt 68.0 kg
[~2021-08-19 10:24] MED LIST changes: +CIPR-263 PO; -FURO40TA5 PO; +GABA-532 PO; +HYDR28.32 TP; +LACT10SO3 PO; -OMEP20CA10 PO; +OMEP20CA15 PO; +RIFA550T PO; -SPIR25TA PO; +THIA100T13 PO
--- NOTE | 2021-08-19 10:47 | NUR ---
pt bibs c/o sore throat, cough,nausea. pt a/o x4 placed on monitor.
[2021-08-19] MEDS ORDERED: IBUPROFEN 600 MG TABLET ONE (11:02)
[2021-08-19] MEDS: IBUPROFEN 600 MG TABLET PO ONE ×2 (11:03→11:09)
--- NOTE | 2021-08-19 12:18 | NUR ---
PT LAYIGN IN BBED COMFORTABLY. NEEDS MET. LAB CALLED FOR STREP RESULTS
[2021-08-19] MEDS ORDERED: AZIT250T PO (12:41)
--- NOTE | 2021-08-19 13:19 | NUR ---
Patient discharged to home in stable condition. Written and verbal after care instructions given. Patient verbalizes understanding of instruction.
[2021-08-19 13:20] VITALS: BP 138/71
== END 2021-08-19 13:21 | disposition home or self-care (01) ==
LOC: ER 10:58
DX: J02.9 Acute pharyngitis, unspecified (principal); Z20.822 Contact with and (suspected) exposure to COVID-19; R03.0 Elevated blood-pressure reading, without diagnosis of hypertension; Z94.4 Liver transplant status; Z90.49 Acquired absence of other specified parts of digestive tract; Z79.899 Other long term (current) drug therapy
CPT/HCPCS: 87070; 87426; 87880; 99283; C9803; 86403-TC

== ENCOUNTER 2021-08-23 16:29 | Emergency (ER) | payer MEDICAID ==
[~2021-08-23] VITALS: Ht 157.5 cm; Wt 59.4 kg
[~2021-08-23 16:29] MED LIST changes: +AZIT250T PO
--- NOTE | 2021-08-23 16:38 | NUR ---
ROSALIE C/O SORETHROAT X1WEEK, WAS SEEN HERE FOR THE SAME REASON ON 08/19 PRESCRIBED ANTIBIOTIC BUT NO IMPROVEMENTS
--- NOTE | 2021-08-23 16:56 | NUR ---
SON WILL BE WAITING OUTSIDE. LEFT # [phone]
[2021-08-23] MEDS ORDERED: DEXAMETHASONE SOLN 5 MG/5 ML UDC PO ONE (17:00)
--- NOTE | 2021-08-23 17:35 | NUR ---
INSERTED ON LEFT FOREARM G20 NEEDLE.
[2021-08-23] MEDS ORDERED: DEXAMETHASONE SOD PHOSPHATE 10 MG/ML VIAL ONE (17:38)
[2021-08-23] MEDS ORDERED: DEXAMETHASONE 4 MG TABLET ONE (17:41)
[2021-08-23] MEDS ORDERED: DEXAMETHASONE SOLN 5 MG/5 ML UDC ONE (17:42)
[2021-08-23 19:28] LABS: CALCIUM, SERUM 8.7 mg/dL (8.5-10.1); CREATININE 0.9 mg/dL (0.6-1.3); POTASSIUM 4.8 mmol/L (3.5-5.1)
--- NOTE | 2021-08-23 19:31 | NUR ---
CALLED RADIOLOGY FOR CT
[2021-08-23] MEDS ORDERED: IV NS 0.9% 250 ML IV ONE (19:33)
[2021-08-23] MEDS ORDERED: CT SWABBABLE VALVE TRANS SET 1 EA INFUS.SET MC ONE (19:33)
[2021-08-23] MEDS ORDERED: IOHEXOL-300 100 ML VIAL IV ONE (19:33)
[2021-08-23 19:58] LABS: BASOPHILS # (AUTO) 0.1 K/uL (0.0-0.2); BASOPHILS % (AUTO) 1.2 % (0.0-2.0); EOSINOPHILS % (AUTO) 2.6 % (0.0-6.0); HEMATOCRIT 36 % (33-45); HEMOGLOBIN 12.2 g/dL (11.5-14.8); LYMPHOCYTES % (AUTO) 33.1 % (20.0-44.0); MEAN CORPUSCULAR HGB CONC 34 g/dl (31.0-36.0); MEAN CORPUSCULAR VOLUME 88 fL (82-100); MONOCYTES # (AUTO) 0.7 K/uL (0.1-1.30); MONOCYTES % (AUTO) 11.8 % (2.0-12.0); NEUTROPHILS # (AUTO) 3.1 K/uL (1.8-8.9); NEUTROPHILS % (AUTO) 51.3 % (43.0-81.0); PLATELET COUNT (AUTO) 263 K/uL (150-450); RED BLOOD CELL COUNT(AUTO) 4.11 MIL/uL (4.0-5.2)
--- NOTE | 2021-08-23 20:45 | NUR ---
CALLED SON TEE THAT DR. GOODWIN WANTS TO TALK TO HIM
[2021-08-23] MEDS ORDERED: PSEU120T83 PO (20:47)
[2021-08-23] MEDS ORDERED: GUAI1TBM19 PO (20:47)
[2021-08-23] MEDS ORDERED: ONDA4TAB11 PO (20:56)
--- NOTE | 2021-08-23 21:16 | NUR ---
Patient discharged to home in stable condition. Written and verbal after care instructions given. Patient verbalizes understanding of instruction.
[2021-08-23 21:18] VITALS: BP 133/81
== END 2021-08-23 21:19 | disposition home or self-care (01) ==
LOC: ER 16:31
DX: J02.8 Acute pharyngitis due to other specified organisms (principal); J32.9 Chronic sinusitis, unspecified; K72.10 Chronic hepatic failure without coma; Z90.49 Acquired absence of other specified parts of digestive tract; Z88.5 Allergy status to narcotic agent; Z79.52 Long term (current) use of systemic steroids; Z79.899 Other long term (current) drug therapy
CPT/HCPCS: 36415; 70491; 80048; 85025; 99285; J1100; J7050; J8540; Q9967

== ENCOUNTER 2021-10-22 13:45 | Emergency (ER) | payer MEDICARE, OTHER ==
[~2021-10-22] VITALS: Ht 157.5 cm; Wt 59.0 kg
[2021-10-22 13:45] VITALS: BP 138/71
[~2021-10-22 13:45] MED LIST changes: +GUAI1TBM19 PO; +ONDA4TAB11 PO; +PSEU120T83 PO
--- NOTE | 2021-10-22 14:14 | NUR ---
ER BED 5 BIBS sorethroat x 3 months. NO SOB. NO CHEST PAIN.
[2021-10-22] MEDS ORDERED: methylPREDNISolone SOD SUCC 40 MG/ML VIAL IV ONE (15:30)
[2021-10-22] MEDS ORDERED: KETOROLAC TROMETHAMINE INJ 30 MG/ML VIAL IV ONE (15:30)
--- NOTE | 2021-10-22 15:48 | NUR ---
LEFT WRIST 20G IV PLACED
[2021-10-22] MEDS ORDERED: methylPREDNISolone SOD SUCC 40 MG/ML VIAL ONE ×2 (15:54→15:56)
[2021-10-22] MEDS ORDERED: KETOROLAC TROMETHAMINE INJ 30 MG/ML VIAL ONE (15:54)
[2021-10-22 16:28] LABS: ALBUMIN 3.7 g/dL (3.4-5.0); BILIRUBIN,TOTAL 0.4 mg/dL (0.2-1.0); CALCIUM, SERUM 9.1 mg/dL (8.5-10.1); CREATININE 1.2 mg/dL (0.6-1.3); POTASSIUM 4.4 mmol/L (3.5-5.1); TOTAL PROTEIN, SERUM 7.2 g/dL (6.4-8.2)
[2021-10-22 16:37] LABS: BASOPHILS % (AUTO) 0.6 % (0.0-2.0); EOSINOPHILS % (AUTO) 2.1 % (0.0-6.0); HEMATOCRIT 36 % (33-45); HEMOGLOBIN 12.2 g/dL (11.5-14.8); LYMPHOCYTES # (AUTO) 1.7 K/uL (0.8-4.8); LYMPHOCYTES % (AUTO) 30.4 % (20.0-44.0); MEAN CORPUSCULAR HGB CONC 34 g/dl (31.0-36.0); MEAN CORPUSCULAR VOLUME 89 fL (82-100); MONOCYTES # (AUTO) 0.7 K/uL (0.1-1.30); MONOCYTES % (AUTO) 12.9 % (2.0-12.0); PLATELET COUNT (AUTO) 230 K/uL (150-450); RED BLOOD CELL COUNT(AUTO) 4.09 MIL/uL (4.0-5.2); WHITE BLOOD COUNT (AUTO) 5.6 K/uL (4.3-11.0)
[2021-10-22 16:40] LABS: THYROID STIMULATING HORMONE 0.954 uIU/mL (0.358-3.74)
[2021-10-22] MEDS ORDERED: IOHEXOL-300 100 ML VIAL IV ONE (16:45)
[2021-10-22] MEDS ORDERED: IV NS 0.9% 250 ML IV ONE (16:45)
[2021-10-22] MEDS ORDERED: CT SWABBABLE VALVE TRANS SET 1 EA INFUS.SET MC ONE (16:45)
[2021-10-22] MEDS ORDERED: CEPH500T PO (19:10)
[2021-10-22] MEDS ORDERED: HYDR-4209 PO (19:10)
--- NOTE | 2021-10-22 19:40 | NUR ---
Patient discharged to home in stable condition. Written and verbal after care instructions given. Patient verbalizes understanding of instruction.IV removed. Catheter intact and site benign. Pressure and 4x4 applied to site. No bleeding noted.
== END 2021-10-22 19:41 | disposition home or self-care (01) ==
LOC: ER 14:02
DX: K11.20 Sialoadenitis, unspecified (principal); Z94.4 Liver transplant status; Z90.49 Acquired absence of other specified parts of digestive tract; Z88.5 Allergy status to narcotic agent; Z79.899 Other long term (current) drug therapy
CPT/HCPCS: 36415; 70491; 80053; 84439; 84443; 85025; 96374; 96375; 99285; J1885; J2920 ×2; J7050; Q9967

== ENCOUNTER 2023-05-03 12:28 | Emergency (ER) | payer MEDICARE, OTHER ==
[~2023-05-03] VITALS: Ht 157.5 cm; Wt 61.7 kg
[~2023-05-03 12:28] MED LIST changes: +CEPH500T PO; +HYDR-4209 PO
[2023-05-03] MEDS ORDERED: diphenhydrAMINE HCL 50 MG/ML VIAL IV ONE (13:00)
[2023-05-03] MEDS ORDERED: METOCLOPRAMIDE HCL 10 MG/2 ML VIAL IV ONE (13:00)
[2023-05-03] MEDS ORDERED: ACETAMINOPHEN ES 500 MG TABLET PO ONE (13:00)
[2023-05-03] MEDS ORDERED: ACETAMINOPHEN ES 500 MG TABLET ONE (13:04)
[2023-05-03] MEDS ORDERED: diphenhydrAMINE HCL 50 MG/ML VIAL ONE (13:04)
[2023-05-03] MEDS ORDERED: METOCLOPRAMIDE HCL 10 MG/2 ML VIAL ONE (13:04)
[2023-05-03 13:09] LABS: BASOPHILS % (AUTO) 0.5 % (0.0-2.0); EOSINOPHILS # (AUTO) 0.1 K/uL (0.0-0.7); EOSINOPHILS % (AUTO) 2.1 % (0.0-6.0); HEMATOCRIT 39 % (33-45); HEMOGLOBIN 12.9 g/dL (11.5-14.8); LYMPHOCYTES # (AUTO) 1.6 K/uL (0.8-4.8); LYMPHOCYTES % (AUTO) 29.1 % (20.0-44.0); MEAN CORPUSCULAR HEMOGLOBIN 30 PG (26.0-33.0); MEAN CORPUSCULAR HGB CONC 33 g/dl (31.0-36.0); MEAN CORPUSCULAR VOLUME 91 fL (82-100); MONOCYTES # (AUTO) 0.5 K/uL (0.1-1.30); MONOCYTES % (AUTO) 9.2 % (2.0-12.0); NEUTROPHILS # (AUTO) 3.3 K/uL (1.8-8.9); NEUTROPHILS % (AUTO) 59.1 % (43.0-81.0); PLATELET COUNT (AUTO) 229 K/uL (150-450); RED BLOOD CELL COUNT(AUTO) 4.29 MIL/uL (4.0-5.2); RED CELL DISTRIBUTION WIDTH 13.9 % (11.5-15.0); WHITE BLOOD COUNT (AUTO) 5.6 K/uL (4.3-11.0)
[2023-05-03 13:19] LABS: CALCIUM, SERUM 9.4 mg/dL (8.5-10.1); CARBON DIOXIDE 26 mmol/L (21-32); CHLORIDE 95 mmol/L (98-107); CREATININE 1.1 mg/dL (0.6-1.3); GLUCOSE 130 mg/dL (74-106); POTASSIUM 3.4 mmol/L (3.5-5.1); SODIUM SERUM 132 mmol/L (136-145); UREA NITROGEN, BLOOD 5 mg/dL (7-18)
[2023-05-03 13:36] LABS: ALANINE AMINOTRANSFERASE 29 U/L (12-78); ALBUMIN 4.3 g/dL (3.4-5.0); ALKALINE PHOSPHATASE 105 U/L (46-116); ASPARTATE AMINOTRANSFERASE 20 U/L (15-37); BILIRUBIN,DIRECT 0.1 mg/dL (0.0-0.2); BILIRUBIN,TOTAL 0.4 mg/dL (0.2-1.0); NT-PRO BNP 121 pg/mL (0-125)
[2023-05-03] MEDS ORDERED: PRED20TA PO (14:27)
[2023-05-03] MEDS ORDERED: VALA100026 PO (14:27)
[2023-05-03 14:49] VITALS: BP 135/70; TEMP 98; O2SAT 98
== END 2023-05-03 14:48 | disposition home or self-care (01) ==
LOC: ER 12:47
DX: R51.9 Headache, unspecified (principal); I10 Essential (primary) hypertension; Z79.899 Other long term (current) drug therapy; Z98.890 Other specified postprocedural states; Z88.5 Allergy status to narcotic agent
CPT/HCPCS: 99285; 96374; 70450; 71045; 96375; 93005; 85025; 80048; 80076; 36415; 84484; 83880; J1200; J2765

== ENCOUNTER 2023-06-12 12:08 | Emergency (ER) | payer MEDICARE, OTHER ==
[~2023-06-12] VITALS: Ht 157.5 cm; Wt 58.5 kg
[~2023-06-12 12:08] MED LIST changes: +PRED20TA PO; +VALA100026 PO
[2023-06-12 13:04] VITALS: BP 125/59; TEMP 99; O2SAT 96
== END 2023-06-12 13:05 | disposition home or self-care (01) ==
LOC: ER 12:11
DX: J06.9 Acute upper respiratory infection, unspecified (principal); I10 Essential (primary) hypertension; Z79.899 Other long term (current) drug therapy; Z90.49 Acquired absence of other specified parts of digestive tract; Z88.5 Allergy status to narcotic agent
CPT/HCPCS: 71045-TC